=== PATIENT | male | born 1960 | race Caucasian/White ===

== ENCOUNTER 2022-09-30 02:18 | Emergency (ER) | payer OTHER, SELFPAY ==
[2022-09-30 02:27] VITALS: BP 121/92; PULSE 46; RESP 16; TEMP 36.6; O2SAT 99; BMI 29.8
--- NOTE | 2022-09-30 02:39 | ED.ALLEREA ---
HPI - Allergic Reaction General Chief complaint: Allergic Reaction Stated complaint: allergic reaction Time Seen by Provider: 09/30/22 02:39 Source: patient Mode of arrival: Ambulatory Limitations: no limitations History of Present Illness HPI narrative: Patient is a 62-year-old male who is here for evaluation of an allergic reaction. He states that several hours ago last evening he started to develop a rash specifically on his groin area. States it is very itchy. He also feels like he is some swelling of his hands. No problems breathing. No abdominal pain. No vomiting. No known new exposures. No new foods. No new medications. Has never had this prior to today. No interventions prior to arrival. Related Data Previous Rx's Medication Instructions Recorded prednisone 50 mg tablet 50 mg PO DAILY 7 days #7 tabs 09/30/22 Allergies Allergy/AdvReac Type Severity Reaction Status Date / Time No Known Drug Allergies Allergy Verified 09/30/22 02:43 Review of Systems Constitutional Constitutional: Reports system reviewed and no additional complaints, except as documented Cardiovascular Cardiovascular: Reports system reviewed and no additional complaints, except as documented Respiratory Respiratory: Reports system reviewed and no additional complaints, except as documented Gastrointestinal Gastrointestinal: Reports system reviewed and no additional complaints, except as documented Integumentary/Breasts Skin/Breast: Reports system reviewed and no additional complaints, except as documented Neurologic Neurologic: Reports system reviewed and no additional complaints, except as documented Hematologic/Lymphatic On Anticoagulants: No Exam Initial Vital Signs Initial Vital Signs: Vital Signs Temperature 97.8 F 09/30/22 02:27 Pulse Rate 46 L 09/30/22 02:27 Respiratory Rate 16 09/30/22 02:27 Blood Pressure 121/92 H 09/30/22 02:27 Pulse Oximetry 99 09/30/22 02:27 Oxygen Delivery Method Room Air 09/30/22 02:27 Const General: cooperative, comfortable and No ill appearing HENFL Head: normal to inspection and normocephalic Face and sinus: normal facial exam Mouth: moist mucous membranes Resp Effort & Inspection: normal respiratory effort Auscultation: clear to auscultation bilaterally Cardio Rate: regular rate GI Inspection: normal to inspection and non-distended Skin Other: Urticaria located in his groin area and also on his lower back. Smaller amounts on his upper back and upper chest. Potentially some lip involvement specifically the lower lip. Does have some swelling of his hands but no erythema. Neuro General: patient alert, patient awake and moves all extremities Extrem General: capillary refill normal Course Orders Ordered: Famotidine (Famotidine 20 Mg/2 Ml Vial) 20 mg IV NOW JOSLYN Last Admin: 09/30/22 03:02 Dose: 20 mg Documented By: PREETHI Discontinued Medications Diphenhydramine HCl (Diphenhydramine 50 Mg/Ml Vial) 25 mg IV NOW ONE Stop: 09/30/22 02:40 Last Admin: 09/30/22 03:02 Dose: 25 mg Documented By: PREETHI Sodium Chloride (Normal Saline 0.9%) 1,000 mls @ 1,000 mls/hr IV BOLUS ONE Stop: 09/30/22 03:38 Last Infusion: 09/30/22 04:12 Dose: 0 mls/hr Documented By: Admin: 09/30/22 03:02 Dose: 1,000 mls/hr Documented By: PREETHI Methylprednisolone (Methylprednisolone 125 Mg/2 Ml Vial) 125 mg IV NOW ONE Stop: 09/30/22 02:40 Last Admin: 09/30/22 03:02 Dose: 125 mg Documented By: PREETHI Vital Signs Vital signs: Vital Signs - 8 hr 09/30/22 02:27 Temperature 97.8 F Pulse Rate 46 L Respiratory Rate 16 Blood Pressure 121/92 H Pulse Oximetry 99 Oxygen Delivery Method Room Air MDM - Allergic Reaction MDM Narrative Medical decision making narrative: Patient is obviously having an allergic reaction to something but what this was is unknown. Low suspicion for anaphylaxis. States he reports improvement of his symptoms with above therapies however not complete resolution. No problems breathing. Tolerating oral intake. Was sent home with a prescription for steroids for the next couple days. Still continue to take antihistamines as well. He was given return precautions. Both he and his expressed understanding and agreement. Discharge Plan Departure Patient Disposition: Home Clinical Impression: Allergic reaction Instructions: DI for General Allergic Reactions Activity Restrictions/Additional Instructions: Amish did receive a dose of Benadryl here at 0300 hours in the morning. He can do Benadryl every 4-6 hours as needed. You can also consider taking Zyrtec which is also an antihistamine along with the Benadryl. You can purchase this [id number]. A prescription for steroids was sent to [facility] per your request. Please take it as directed. Return to the emergency department for any new or worsening symptoms. Prescriptions: New prednisone 50 mg tablet 50 mg PO DAILY 7 Days Qty: 7 0RF Stand Alone Forms: Patient Portal/API
[2022-09-30] MEDS: methylPREDNISolone 125 MG/2 ML VIAL IV (03:02)
[2022-09-30] MEDS: FAMOTIDINE 20 MG/2 ML VIAL IV (03:02)
[2022-09-30] MEDS: SODIUM CHLORIDE 0.9% 1,000 ML 1000 ML IV (03:02)
[2022-09-30] MEDS: diphenhydrAMINE 50 MG/ML VIAL 25 MG IV (03:02)
[2022-09-30 03:06] VITALS: O2SAT 100
[2022-09-30 03:30] VITALS: O2SAT 99
[2022-09-30 04:00] VITALS: O2SAT 97
[2022-09-30 04:30] VITALS: O2SAT 95
[2022-09-30 04:54] VITALS: BP 130/63; PULSE 52; PULSE 54; O2SAT 100; O2SAT 98
== END 2022-09-30 05:03 | disposition home or self-care (01) ==
PROVIDERS: Emergency Provider Emergency Medicine
DX: T78.40XA Allergy, unspecified, initial encounter (principal)
CPT/HCPCS: 96361; 96374; 96375; 99283; 99284; J1200; J2930

== ENCOUNTER → 2024-08-27 08:52 | Outpatient (CLI) | payer OTHER, SELFPAY ==
[2024-08-30 11:45] LABS: PSA Free % 33.4 % (.); PSA, Total 6.5 ng/mL (0.0-4.0)
== END ==
LOC: LAB 08:53
PROVIDERS: PCP Physician Assistant; Referring Provider Urology; Visit Provider Urology
DX: R39.9 Unspecified symptoms and signs involving the genitourinary system (principal)
CPT/HCPCS: 36415; 84153; 84154

== ENCOUNTER 2024-09-09 11:49 | Day surgery (SDC) | payer OTHER, SELFPAY ==
--- NOTE | 2024-09-09 | PATH_ITS ---
[facility] Accession Number: [id number] No. of containers..01 Tissue . 01 Material submitted: . colon - DESCENDING POLYP . 01 Diagnosis: DESCENDING COLON POLYP: Hyperplastic polyp. MRV 09/13/2024 1330 Local . 01 Electronically signed: . Dallas Palmer MD, PhD, Pathologist NPI- [id number] . 01 Gross description: . Received in formalin with two patient identifiers and descending polyp, consists of a 0.5 cm in greatest dimension sood tissue, submitted in toto in cassette A1. ([id number]) /MRV 09/10/2024 1727 Local . 01 Pathologist provided ICD-10: K63.5 . 01 CPT . 281943 Specimen Comment: A courtesy copy of this report has been sent to [phone] Performed at: [address] [id number] MD Jas Saenz MD Phone: [phone]
[2024-09-09 12:03] VITALS: BP 153/84; PULSE 48; RESP 16; TEMP 36.1; O2SAT 99
[2024-09-09] MEDS: LACTATED RINGERS 1,000 ML 150 ML IV (12:09)
--- NOTE | 2024-09-09 12:44 | PM.HP.IH.1 ---
History of Present Illness History of Present Illness Date Patient Seen: 09/09/24 Time Patient Seen: 12:44 Chief complaint: SDC Narrative: Amish is a 64-year-old man here for a screening colonoscopy. He was last was about 10 years ago. PFSH Surgical History Hx of vasectomy Hx of elbow surgery Hx of knee surgery Family History Mother Cancer Social History marital status: Smoking Status: Never smoker alcohol intake: never caffeine: Yes Type(s) of exercise: aerobic frequency: daily duration: 60-90 minutes/day Meds Home Medications and Allergies Home Medications Medication Instructions Recorded Confirmed Type ezetimibe 10 mg tablet 10 mg PO DAILY 07/20/24 09/09/24 History Allergies Allergy/AdvReac Type Severity Reaction Status Date / Time [id number] Reductase Allergy Unknown Muscle Pain Verified 09/09/24 12:01 Inhibitor Exam Vital Signs (past 8 hours): - 09/09/24 12:03 Temperature 96.9 F L Pulse Rate 48 L Respiratory Rate 16 Blood Pressure 153/84 H Pulse Oximetry 99 Oxygen Delivery Method Room Air Oxygen Flow Rate 0 Oxygen Delivery Method Room Air Oxygen Flow Rate 0 Const General: healthy appearing Assessment & Plan Assessment and plan (1) Colon cancer screening: Status: Acute Plan Colonoscopy Time-Based Coding :: [TOTAL MINUTES] spent with patient and on the chart (including review of chart, obtaining history, exam, reviewing outside data, placing orders, documenting exam and treatment plan, and counseling patient) on [DATE]. [employer] Document charge(s): No
[2024-09-09 13:14] VITALS: BP 110/62; PULSE 57; RESP 17; TEMP 36.4; O2SAT 95
--- NOTE | 2024-09-09 13:17 | PM.OP.COLON ---
Operative Date/Time/Diagnoses Date of procedure: 09/09/24 Time of procedure: 13:17 Pre-op diagnosis: Colon cancer screening Post-op diagnosis: same Procedure & Clinicians Study performed: Colonoscopy Same procedure as scheduled: Yes Surgeon: Davide Salazar Procedure Notes Procedure in detail: Surgeon: Davide Salazar MD Anesthesia: Alena Prieto CRNA Procedure: The patient was brought to the endoscopy suite, placed in left lateral decubitus position. The patient was connected to monitoring devices. A time-out was performed. Sedation was administered. Once the patient was adequately sedated, a digital rectal exam was performed and was normal. The scope was then inserted and advanced to the cecum where the appendiceal orifice was identified and photographed. The scope was then slowly withdrawn over greater than 6 minutes. The mucosa was thoroughly inspected. There was a 5 mm polyp in the descending colon removed with a cold snare. The scope was retroflexed in the rectum. No other abnormalities were found. The scope was straightened and removed. The patient was awakened and brought to recovery. Scope withdrawal time: 8 minutes Sedation time: 12 minutes EBL: 2 mL Findings: 5 mm polyp in the descending colon Post-procedure Disposition: PACU
[2024-09-09 13:19] VITALS: BP 106/66; PULSE 54; RESP 10; O2SAT 92
[2024-09-09 13:24] VITALS: BP 99/72; PULSE 63; RESP 12; O2SAT 99
[2024-09-09 13:30] VITALS: BP 114/65; PULSE 63; RESP 14; O2SAT 96
== END 2024-09-09 13:45 | disposition home or self-care (01) ==
PROVIDERS: PCP Physician Assistant; Referring Provider Surgery; Visit Provider Surgery
PROC: 0DJD8ZZ Inspection of Lower Intestinal Tract, Via Natural or Artificial Opening Endoscopic (ICD-10-PCS; CPT 45378; principal; 2024-09-09 13:15)
DX: Z12.11 Encounter for screening for malignant neoplasm of colon (principal); K63.5 Polyp of colon
CPT/HCPCS: 45385; J2405; J2704

== ENCOUNTER → 2024-09-15 19:41 | Outpatient (CLI) | payer OTHER, SELFPAY ==
--- NOTE | 2024-09-15 19:43 | DI.MRI.S_ITS ---
PROCEDURE: MR PELVIC PROSTATE PROTOCOL INDICATIONS: 64 y/o M w/ elevated PSA, please eval TECHNIQUE: Coronal HASTE, axial T1 FSE with fat saturation, 3-plane nonbreath-hold T2 FSE. After the administration of contrast, dynamic axial, delayed axial and coronal VIBE or 2-D FLASH with fat saturation through the pelvis. Diffusion weighted imaging and ADC was performed. COMPARISON: None. FINDINGS: Image quality: Diffusion weighted and dynamic contrast enhanced images are diagnostic. Prostate: Gland size is 4.8 x 5.9 x 5.1 cm; ellipsoid gland volume is 75 mL. Given PSA of 6.5, PSA density is 0.087. Lesion 1: Location: Left transition zone at the mid gland level, on axial series four, image 12 and coronal series five, image 14. Heterogeneous, clustered nodularity of indistinct T2 hypointensity. Size: The entire area measures roughly 2.7 cm AP diameter by about 1.3 cm in craniocaudal dimension. cm. T2W signal: Heterogeneously mildly hypointense DWI signal: Moderate hyperintensity ADC signal: Moderate hypointensity Enhancement: No Extracapsular extension: No. No neurovascular involvement. PI-RADS score: Three Genitourinary system: Bladder wall thickness is normal. Distal ureters are non distended. Bowel and peritoneum: No pathologic free pelvic fluid. Inferior colon and small bowel loops are normal in caliber. Nodes and vessels: No pelvic or inguinal adenopathy by size criteria. Iliac vessels are normal in caliber. Soft tissues: No inguinal hernias. Bones: Marrow demonstrates normal overall signal, without lesions to suggest metastases. IMPRESSION: Left transition zone at the mid gland level demonstrates PI-RADS three characteristics, intermediate suspicion for malignancy. No pelvic lymphadenopathy by size criteria. No aggressive osseous abnormality. Dictated by: Audrey Urbano M.D. on 09/16/2024 at 9:53 Approved by: Audrey Urbano M.D. on 09/16/2024 at 10:11
== END ==
PROVIDERS: PCP Physician Assistant; Referring Provider Urology; Visit Provider Urology
DX: N42.9 Disorder of prostate, unspecified (principal); R97.20 Elevated prostate specific antigen [PSA]
CPT/HCPCS: 72197; A9579

== ENCOUNTER → 2025-03-03 08:22 | Outpatient (CLI) | payer OTHER, SELFPAY ==
[2025-03-05 06:40] LABS: PSA, Total 7.8 ng/mL (0.0-4.0)
== END ==
PROVIDERS: PCP Physician Assistant; Referring Provider Urology; Visit Provider Urology
DX: R97.20 Elevated prostate specific antigen [PSA] (principal)
CPT/HCPCS: 36415; 84153; 84154